=== PATIENT | female | born 1950 | race Asian ===

== ENCOUNTER → 2019-05-16 | Outpatient (CLI) | payer OTHER, BC | END | disposition home or self-care (01) | LOC: CT 10:00 | PROC: B922ZZZ Computerized Tomography (CT Scan) of Paranasal Sinuses (ICD-10-PCS; principal; 2019-05-16) | PROC: BW28ZZZ Computerized Tomography (CT Scan) of Head (ICD-10-PCS; 2019-05-16) | DX: J32.9 Chronic sinusitis, unspecified (principal); R51 Headache ==